=== PATIENT | female | born 1960 | race Caucasian/White ===

== ENCOUNTER 2017-11-11 20:19 | Emergency (ER) | payer BC ==
[2017-11-11 20:51] VITALS: BP 134/74
[2017-11-11] MEDS ORDERED: Ketorolac 30 MG/ML SDV IVPUSH ONE (21:17)
[2017-11-11] MEDS ORDERED: Sodium Chloride 0.9% 1,000 ML IV SCH (21:30)
--- NOTE | 2017-11-11 21:32 | EDM.PDOC ---
ED HPI GENERAL MEDICAL PROBLEM - General Chief Complaint: Genitourinary Problem Stated Complaint: LEFT BACK PAIN,URINARY DIFFICULTY Time Seen by Provider: 11/11/17 20:38 Source of Information: Reports: Patient History Limitations: Reports: No Limitations - History of Present Illness INITIAL COMMENTS - FREE TEXT/NARRATIVE: 57 yo female presents to ER with sensation of post void retention and left flank pain. sensation with mild suprapubic pressure she was seen in clinic last week UA per pt had blood but no bacteria. Today pt developed left flank pain and "I just can't get comfortable" afebrile. she did spend the day gardening and feels she may not have kept up on her fluids. generally healthy left lower back pain Pain Score (Numeric/FACES): 6 - Related Data Allergies Allergy/AdvReac Type Severity Reaction Status Date / Time No Known Allergies Allergy Verified 11/11/17 20:41 Home Meds: Home Meds NK [No Known Home Meds] 11/11/17 [History] Past Medical History HEENT History: Reports: Impaired Vision Other HEENT History: wears glasses Gastrointestinal History: Reports: Hemorrhoids Other Gastrointestinal History: colon polyps Genitourinary History: Reports: Renal Calculus [employer] History: Reports: Dermatologic History: Reports: Eczema - Infectious Disease History Infectious Disease History: Reports: Chicken Pox - Past Surgical History HEENT Surgical History: Reports: Oral Surgery GI Surgical History: Reports: Appendectomy, Other (See Below) Other GI Surgeries/Procedures: hemorrhoidectomy Female Surgical History: Reports: Other (See Below) Other Female Surgeries/Procedures: Ovarian cyst removal Musculoskeletal Surgical History: Reports: Other (See Below) Other Musculoskeletal Surgeries/Procedures:: jaw wires placed Social & Family History - Family History Family Medical History: Noncontributory Cardiac: Reports: NE Oncologic: Reports: Other (See Below) Other Oncologic Family History: spindle cell sarcoma - Tobacco Use Smoking Status *Q: Current Every Day Smoker Years of Tobacco use: 40 Packs/Tins Daily: 0.7 - Caffeine Use Caffeine Use: Reports: Coffee - Recreational Drug Use Recreational Drug Use: No ED ROS GENERAL - Review of Systems Review Of Systems: See Below Constitutional: Denies: Fever, Chills, Fatigue Respiratory: Denies: Shortness of Breath, Wheezing Cardiovascular: Denies: Chest Pain : Reports: Dysuria, Flank Pain, Frequency, Urinary Retention Skin: Denies: Rash ED EXAM, RENAL/ - Physical Exam Exam: See Below Exam Limited By: No Limitations General Appearance: Alert, WD/WN, No Apparent Distress Respiratory/Chest: No Respiratory Distress, Lungs Clear, Normal Breath Sounds. No: Crackles, Rhonchi, Wheezing Cardiovascular: Regular Rate, Rhythm, No Murmur GI/Abdominal: Normal Bowel Sounds, Soft, Tender (left suprapubic) Back Exam: CVA Tenderness (L) Neurological: Alert, Oriented Psychiatric: Normal Affect, Normal Mood Skin Exam: Warm, Dry, Intact Course - Vital Signs Last Recorded V/S: Last Vital Signs Temp 37.1 C 11/11/17 20:51 Pulse 83 11/11/17 20:51 Resp 17 11/11/17 20:51 BP 134/74 11/11/17 20:51 Pulse Ox 95 11/11/17 20:51 - Orders/Labs/Meds Orders: Active Orders 24 hr Category Date Time Status UA W/MICROSCOPIC [URIN] Urgent Lab 11/11/17 21:11 Ordered Sodium Chloride 0.9% [Normal Saline] 1,000 ml Med 11/11/17 21:30 Active IV ASDIRECTED Medication Orders Sodium Chloride (Normal Saline) 1,000 mls @ 999 mls/hr IV ASDIRECTED RANJAN Last Admin: 11/11/17 21:34 Dose: 999 mls/hr Labs: Laboratory Tests 11/11/17 Range/Units 21:11 Urine Color Yellow Urine Appearance Clear Urine pH 5.0 (4.5-8.0) Ur Specific [place] 1.025 (1.008-1.030) Urine Protein Negative (NEGATIVE) mg/dL Urine Glucose (UA) Normal (NEGATIVE) mg/dL Urine Ketones Negative (NEGATIVE) mg/dL Urine Occult Blood Moderate (NEGATIVE) Urine Nitrite Negative (NEGATIVE) Urine Bilirubin Negative (NEGATIVE) Urine Urobilinogen Normal (NORMAL) mg/dL Ur Leukocyte Esterase Negative (NEGATIVE) Urine RBC 5-10 H (0-5) Urine WBC 5-10 H (0-5) Ur Epithelial Cells Few Amorphous Sediment Not seen Urine Bacteria Few Urine Mucus Moderate Urine Other Meds: Medications Generic Name Dose Route Start Last Admin Trade Name Freq PRN Reason Stop Dose Admin Sodium Chloride 1,000 mls @ 999 mls/hr 11/11/17 21:30 11/11/17 21:34 Normal Saline IV 999 mls/hr ASDIRECTED RANJAN Administration Discontinued Medications Generic Name Dose Route Start Last Admin Trade Name Kaye PRN Reason Stop Dose Admin Ketorolac Tromethamine 30 mg 11/11/17 21:17 11/11/17 21:34 Toradol IVPUSH 11/11/17 21:18 30 mg ONETIME ONE Administration - Re-Assessments/Exams Free Text/Narrative Re-Assessment/Exam: 11/11/17 22:19 pain improved with fluids and ketoralac. UA WBCs with few bacteria and also RBC with calcium particles. will treat as kidney stone and for UTI Departure - Departure Time of Disposition: 22:20 Disposition: Home, Self-Care 01 Condition: Good Clinical Impression: UTI, Urinary tract infectious disease, Calcium kidney stone - Discharge Information Instructions: Kidney Stones, [id number] Referrals: PCP,None [Primary Care Provider] - Forms: ED Department Discharge Additional Instructions: Bactrim DS twice daily for 3 days flomax for 1 week increase fluid intake with goal of 1.5 Liters per day follow-up with primary care if symptoms do not resolve - My Orders Last 24 Hours: My Active Orders 11/11/17 21:30 Sodium Chloride 0.9% [Normal Saline] 1,000 ml IV ASDIRECTED - Assessment/Plan Last 24 Hours: My Active Orders 11/11/17 21:30 Sodium Chloride 0.9% [Normal Saline] 1,000 ml IV ASDIRECTED
[2017-11-11] MEDS ORDERED: Sulfamethoxazole/Trimethoprim 800-160 MG Tab PO ONE (22:17)
== END 2017-11-11 22:31 | disposition home or self-care (01) ==
LOC: JP.ED 20:19
DX: N39.0 Urinary tract infection, site not specified (principal); N20.0 Calculus of kidney; F17.210 Nicotine dependence, cigarettes, uncomplicated
CPT/HCPCS: 81001; 96361; 96374; 99284; A9270; J1885; J7030

== ENCOUNTER 2017-12-13 06:34 | Day surgery (SDC) | payer BC ==
[2017-12-13] MEDS ORDERED: Sodium Phosphate,Monobasic/Sodium Phosphate,Dibasic Enema 133 ML Bottle RECTAL ONE (06:44)
[2017-12-13] MEDS ORDERED: Lactated Ringers 1,000 ML IV SCH (07:15)
[2017-12-13] MEDS ORDERED: Midazolam 1 MG/ML 2 ML SDV ONE (07:24)
[2017-12-13] MEDS ORDERED: fentaNYL 100 MCG/2 ML SDV ONE (07:24)
[2017-12-13] MEDS ORDERED: Propofol 200 MG/20 ML SDV ONE ×2 (07:25→07:58)
[2017-12-13] MEDS ORDERED: Dextrose 5%-Lactated Ringers 1,000 ML IV SCH (07:45)
[2017-12-13 09:03] VITALS: BP 153/87
--- NOTE | 2017-12-13 09:30 | OR ---
DATE OF PROCEDURE: 12/13/2017 PREOPERATIVE DIAGNOSIS: History of adenomatous colon polyps. POSTOPERATIVE DIAGNOSES: 1. Two small colon polyps. 2. History of adenomatous colon polyps. PROCEDURES: Colonoscopy to the cecum with biopsy resection of 2 small colon polyps, 40 cm from anal verge and rectum. SURGEON: Ab Soriano MD. ANESTHESIA: IV anesthesia with monitored anesthesia care. INDICATIONS: This 57-year-old white female is referred for a colonoscopy. Her last colonoscopic exam was done three years ago. At that point, she had four polyps removed, only one of which was an adenoma, it was a tubular adenoma. I counseled her for a colonoscopy with possible biopsy and/or polypectomy including risks and alternatives and she gave her informed consent to proceed. DESCRIPTION OF PROCEDURE: The patient was placed in the left lateral decubitus position. IV anesthesia was administered by the Anesthesia Service. Time-out was held. A rectal exam was performed, which was unremarkable. The flexible video Olympus colonoscope was introduced through her anus up her rectum out her colon all way to the cecum. En route, at 40 cm from anal verge, we encountered a small polyp which was removed with a few bites of the biopsy forceps. Once the cecum was reached, the scope was slowly withdrawn examining the mucosa throughout. No other mucosal abnormalities were noted until we reached the rectum. Here, another small polyp was seen, which was also removed with the biopsy forceps. The scope was retroflexed in the rectum with the distal rectum appearing unremarkable. The scope was straightened and removed. She tolerated the procedure well. Ab Soriano MD /[id number]
== END 2017-12-13 09:37 | disposition home or self-care (01) ==
LOC: JP.SDS 06:34
PROVIDERS: ATTEND Surgery
DX: Z12.11 Encounter for screening for malignant neoplasm of colon (principal); K63.5 Polyp of colon; K62.1 Rectal polyp; J45.909 Unspecified asthma, uncomplicated; F17.200 Nicotine dependence, unspecified, uncomplicated; Z86.010 Personal history of colon polyps
CPT/HCPCS: 45380; A9270; J2250; J2704; J3010; J7120

== ENCOUNTER 2023-01-08 07:02 | Day surgery (SDC) | payer BC, OTHER ==
[~2023-01-08 07:02] MED LIST: Midazolam 1 MG/ML 2 ML SDV ONE; Propofol 200 MG/20 ML SDV ONE; fentaNYL 50 MCG/ML SDV ONE
[2023-01-08] MEDS ORDERED: Lactated Ringers 1,000 ML IV SCH (08:45)
[2023-01-08 10:05] VITALS: BP 151/78; PULSE 74
== END 2023-01-08 10:19 | disposition home or self-care (01) ==
LOC: JP.SDS 07:02
PROVIDERS: ATTEND Family Medicine
DX: Z12.11 Encounter for screening for malignant neoplasm of colon (principal); D12.5 Benign neoplasm of sigmoid colon; K62.1 Rectal polyp
CPT/HCPCS: 45380; 88305; J2250; J2704; J3010; J7120